=== PATIENT | female | born 1965 | race Two or more races ===

== ENCOUNTER → 2025-03-11 | Outpatient (CLI) | payer OTHER ==
[2025-03-11 16:18] LABS: Triglycerides 123 mg/dL (< 150)
[2025-03-11 16:20] LABS: Cholesterol 182 mg/dL (< 200); HDL Cholesterol 44 mg/dL (40-59)
== END | disposition home or self-care (01) ==
LOC: LAB 14:57
PROVIDERS: ATTEND Internal Medicine
DX: I10 Essential (primary) hypertension (principal); E11.69 Type 2 diabetes mellitus with other specified complication; E78.5 Hyperlipidemia, unspecified; F11.20 Opioid dependence, uncomplicated
CPT/HCPCS: 36415; 80061; 83036